=== PATIENT | male | born 1975 | race Two or more races ===

== ENCOUNTER 2024-10-18 07:51 | Inpatient (IN) | payer SELFPAY ==
[2024-10-18] MEDS ORDERED: Morphine 4 MG/ML VIAL ONE (09:08)
[2024-10-18 09:59] LABS: ALT (SGPT) 117 U/L (8-55); AST (SGOT) 206 U/L (5-34); Albumin 4.5 g/dL (3.5-5.0); Alkaline Phosphatase 154 U/L (40-110); Anion Gap 27 mmol/L (10-20); BUN (Urea Nitrogen) 14 mg/dL (8.9-20.6); Calc. Creatinine Clearance 0 mL/min (70-130); Calcium 9.3 mg/dL (7.8-10.44); Carbon Dioxide 14 mmol/L (22-29); Chloride 97 mmol/L (98-107); Estimated GFR 27; Glucose 109 mg/dL (70-105); Magnesium 1.5 mg/dL (1.6-2.6); Potassium 4.1 mmol/L (3.5-5.1); Protein, Total 9.5 g/dL (6.0-8.3); Sodium 134 mmol/L (136-145)
[2024-10-18] MEDS ORDERED: Lorazepam 2 MG/ML VIAL ONE (10:27)
[2024-10-18] MEDS ORDERED: Thiamine HCl 200 MG/2 ML VIAL ONE (10:27)
[2024-10-18 10:38] LABS: Troponin I 0.369 ng/mL (< 0.028)
[2024-10-18] MEDS ORDERED: Folic Acid 1 MG TAB ONE (10:40)
[2024-10-18] MEDS ORDERED: Aspirin Chewable 81 MG TAB ONE (11:15)
[2024-10-18] MEDS ORDERED: Acetaminophen 325 MG TAB PO PRN (11:55)
[2024-10-18] MEDS ORDERED: Ondansetron PF 4 MG/2 ML Vial IVP PRN (11:55)
[2024-10-18] MEDS ORDERED: Ondansetron ODT 4 MG TAB PO PRN (11:55)
[2024-10-18] MEDS ORDERED: Acetaminophen 650 MG Suppository PR PRN (11:55)
[2024-10-18] MEDS ORDERED: Lorazepam 2 MG/ML VIAL IM PRN (11:56)
[2024-10-18] MEDS ORDERED: Electrolyte Replacement Protocol 1 EACH FS SCH (12:00)
[2024-10-18 12:15] LABS: Actual Bicarbonate (HCO3v) 20.6 mEq/L (22-28); Analyzer IN Cardio ER; Base Excess -4.7 mEq/L (-2.0 to +3.0); Calcium, Ionized (venous) 1.02 mmol/L (1.16-1.32); Chloride (VBG) 95 mmol/L (98-106); Hematocrit-VBG 44 % (42.0-52.0); Hemoglobin (Hb) 15.1 g/dL (13.1-17.2); Potassium (VBG) 4.09 mmol/L (3.70-5.30); Sodium 136 mmol/L (133-146); pH (venous) 7.343 (7.32-7.43)
[2024-10-18 12:59] LABS: Troponin I 0.484 ng/mL (< 0.028)
[2024-10-18 13:21] LABS: Lactic Acid 3.22 mmol/L (0.5-2.2)
[2024-10-18 16:09] LABS: Critical Call Chem Troponin I RESULT DECREASING; Troponin I 0.406 ng/mL (< 0.028)
[2024-10-18 17:23] VITALS: BMI 21.6
[2024-10-18] MEDS: Pantoprazole 40 MG VIAL IVP SCH (17:53)
[2024-10-18] MEDS: Dextrose 5%-Lactated Ringers 1,000 ML IV SCH (17:53)
[2024-10-18 18:46] LABS: Troponin I 0.384 ng/mL (< 0.028)
[2024-10-18] MEDS: Lorazepam 1 MG TAB PO PRN (21:53)
[2024-10-18] MEDS: Calcium Carbonate 500 MG ChewTAB PO PRN (21:53)
[2024-10-19 05:09] LABS: #Basophils Less than 0.03 10x3/uL (0.0-0.2); #Eosinophils Less than 0.03 10x3/uL (0.0-0.7); %Basophils 0.2 % (0.0-1.0); %Lymphocytes 10.2 % (21.0-51.0); %Monocytes 5.9 % (0.0-10.0); %Neutrophils 83.3 % (42.0-75.0); Hematocrit 29.6 % (42.0-52.0); Mean Corpuscular HGB CONC 37.2 g/dL (32.0-36.0); Mean Corpuscular Hemoglobin 36.1 pg (27.0-31.0); Mean Platelet Volume 8.6 fL (7.4-10.4); Platelet Count 291 10x3/uL (130-400); RBC Distribution Width 13.1 % (11.5-14.5); Red Blood Cell (RBC) Count 3.05 mill/uL (4.70-6.10)
[2024-10-19 05:34] LABS: ALT (SGPT) 70 U/L (8-55); AST (SGOT) 116 U/L (5-34); Albumin 3.5 g/dL (3.5-5.0); Alkaline Phosphatase 92 U/L (40-110); Anion Gap 13 mmol/L (10-20); BUN (Urea Nitrogen) 11 mg/dL (8.9-20.6); Bilirubin, Total 0.8 mg/dL (0.2-1.2); Calc. Creatinine Clearance 76 mL/min (70-130); Calcium 8.8 mg/dL (7.8-10.44); Carbon Dioxide 25 mmol/L (22-29); Chloride 94 mmol/L (98-107); Cholesterol 134 mg/dl (< 200 Desired); Estimated GFR 82; Globulin 3.4 g/dL (2.4-3.5); Glucose 126 mg/dL (70-105); HDL Cholesterol 68 mg/dL (>60 Neg Risk); LDL Cholesterol, Calculated 52 mg/dL; Protein, Total 6.9 g/dL (6.0-8.3); Sodium 129 mmol/L (136-145); Triglycerides 70 mg/dL (Less than 150)
[2024-10-19 06:31] LABS: Free T4 (Free Thyroxine) 1.07 ng/dL (0.70-1.48); Thyroid Stimulating Hormone 0.5953 uIU/mL (0.35-4.94)
[2024-10-19 08:47] LABS: Lactic Acid 1.75 mmol/L (0.5-2.2)
[2024-10-19] MEDS: Thiamine HCl 200 MG/2 ML VIAL SLOW IVP SCH (10:10)
[2024-10-19] MEDS: Aspirin Chewable 81 MG TAB PO SCH (10:10)
[2024-10-19] MEDS: Potassium Chloride 20 MEQ TAB PO SCH ×2 (10:10→14:05)
[2024-10-19] MEDS: Multivit, Therapeutic 1 TAB PO SCH (10:10)
[2024-10-19] MEDS: Pantoprazole 40 MG VIAL IVP SCH (10:11)
[2024-10-19] MEDS: Magnesium 2 GM/50 ML(in water) 2 GM in Premix 1 BAG IVPB SCH (10:11)
[2024-10-19] MEDS ORDERED: Lorazepam 1 MG TAB PO PRN (11:56)
[2024-10-20 04:58] LABS: #Basophils Less than 0.03 10x3/uL (0.0-0.2); #Eosinophils Less than 0.03 10x3/uL (0.0-0.7); %Basophils 0.2 % (0.0-1.0); %Eosinophils 0.3 % (0.0-10.0); %Lymphocytes 19.6 % (21.0-51.0); %Monocytes 8.1 % (0.0-10.0); %Neutrophils 71.5 % (42.0-75.0); Hemoglobin 11.1 g/dL (14.0-18.0); Mean Corpuscular Hemoglobin 36.3 pg (27.0-31.0); Mean Platelet Volume 8.5 fL (7.4-10.4); Platelet Count 246 10x3/uL (130-400); RBC Distribution Width 12.8 % (11.5-14.5); Red Blood Cell (RBC) Count 3.06 mill/uL (4.70-6.10)
[2024-10-20 05:27] LABS: ALT (SGPT) 63 U/L (8-55); AST (SGOT) 103 U/L (5-34); Albumin 3.5 g/dL (3.5-5.0); Alkaline Phosphatase 87 U/L (40-110); Anion Gap 11 mmol/L (10-20); BUN (Urea Nitrogen) 4 mg/dL (8.9-20.6); Bilirubin, Total 1.3 mg/dL (0.2-1.2); Calc. Creatinine Clearance 129 mL/min (70-130); Calcium 8.4 mg/dL (7.8-10.44); Carbon Dioxide 25 mmol/L (22-29); Chloride 92 mmol/L (98-107); Estimated GFR 116; Globulin 3.4 g/dL (2.4-3.5); Glucose 96 mg/dL (70-105); Potassium 3.2 mmol/L (3.5-5.1); Protein, Total 6.9 g/dL (6.0-8.3); Sodium 125 mmol/L (136-145)
[2024-10-20] MEDS: Magnesium 2 GM/50 ML(in water) 2 GM in Premix 1 BAG IVPB SCH (09:37)
[2024-10-20] MEDS: Potassium Chloride 20 MEQ TAB PO SCH (09:37)
[2024-10-20] MEDS: FLU (Fluarix Triv) TS24-25(6MOS UP)/PF 45 MCG/0.5 ML Syringe IM ONE (09:44)
[2024-10-20] MEDS ORDERED: Lorazepam 1 MG TAB PO PRN (11:56)
[2024-10-20 12:22] VITALS: BP 139/94; TEMP 97.5
[2024-10-21] MEDS ORDERED: Pantoprazole DR 40 MG TAB PO SCH (09:00)
[2024-10-21] MEDS ORDERED: Lorazepam 0.5 MG TAB PO PRN (11:56)
[2024-10-22] MEDS ORDERED: Thiamine 100 MG TAB PO SCH (09:00)
== END 2024-10-20 14:21 | disposition home or self-care (01) | DRG 438 ==
LOC: ERS 07:51 → ERHOLD 12:18 → 2NO 16:29
PROVIDERS: ADMIT Student in an Organized Health Care Education/Training Program; ATTEND Internal Medicine
DX: K85.20 Alcohol induced acute pancreatitis without necrosis or infection (principal); I21.A1 Myocardial infarction type 2; E87.20 Acidosis, unspecified; N17.9 Acute kidney failure, unspecified; E86.0 Dehydration; E11.9 Type 2 diabetes mellitus without complications; E87.6 Hypokalemia; Z96.652 Presence of left artificial knee joint; Z87.442 Personal history of urinary calculi; Z87.891 Personal history of nicotine dependence
CPT/HCPCS: 36415; 76705; 80053; 80061; 82010; 82533; 82805; 83605; 83690; 83735; 84439; 84443; 84481; 85025; 93005; J2060; J2272; J2470; J3411; J3475

== ENCOUNTER 2025-10-26 18:06 | Emergency (ER) | payer BC, SELFPAY | END 2025-10-26 18:55 | disposition home or self-care (01) | LOC: ERS 18:06 | DX: S61.254A Open bite of right ring finger without damage to nail, initial encounter (principal); F17.210 Nicotine dependence, cigarettes, uncomplicated; W53.11XA Bitten by rat, initial encounter; Z23 Encounter for immunization | CPT/HCPCS: 90471; 90715 ==